=== PATIENT | male | born 1955 | race Caucasian/White ===

== ENCOUNTER 2018-04-26 03:05 | Emergency (ER) | END 2018-04-26 06:24 | disposition home or self-care (01) ==

== ENCOUNTER 2018-05-05 17:56 | Emergency (ER) | END 2018-05-05 18:15 | disposition left against medical advice (07) ==

== ENCOUNTER 2018-06-05 09:14 | Emergency (ER) | END 2018-06-05 10:26 | disposition home or self-care (01) ==